=== PATIENT | male | born 1945 | race Caucasian/White ===

== ENCOUNTER 2019-01-18 06:21 | Day surgery (SDC) | payer OTHER, SELFPAY ==
--- NOTE | 2019-01-18 | PATH_ITS ---
[facility] Accession Number: [id number] . 01 Material submitted: . PART A: CECAL POLYP PART B: POLYP AT 40CM PART C: POLYP AT 20CM . 02 Diagnosis: A. Cecum, Polyp, Biopsy: Tubular adenoma. . B. Polyp at 40 cm, Biopsy: Tubular adenoma. . C. Polyp at 20 cm, Biopsy: Tubular adenoma. MRV/01/21/2019 . 02 Electronically signed: . Lorraine Valencia MD, Pathologist NPI- [id number] . 01 Gross description: . Received three formalin-filled containers, both labeled with the patient's name: . A. In a container labeled cecal polyp, are multiple 0.1-0.3 cm portions of tissue, entirely submitted in cassette A. B. In a container labeled polyp at 40 cm, are two 0.2-0.4 cm portions of tissue, entirely submitted in cassette B. C. In a container labeled polyp at 20 cm, are two less than 0.1 cm to 0.5 cm portions of tissue, entirely submitted in cassette C. ([id number]) /FRR . 02 Pathologist provided ICD-10: D12.0, D12.6 . 02 CPT . 406453, 121420, 846081 Performed at: 01 [facility] [address] [place] [address], [place], [place] [id number] MD Herber Ordonez MD Phone: [phone] Performed at: 02 [facility] [address] [place], [place] [id number] MD Lorraine Valencia MD Phone: [phone]
[2019-01-18 07:04] VITALS: BMI 27.4
[2019-01-18 07:09] VITALS: BP 157/89; PULSE 85; RESP 15; TEMP 36.7; O2SAT 94
[2019-01-18] MEDS: SODIUM CHLORIDE 0.9% 1,000 ML 200 ML IV (07:45)
--- NOTE | 2019-01-18 08:05 | PM.HP.1 ---
History of Present Illness Chief complaint: colonoscopy [id number] Narrative: Patient is here for a colonoscopy. He has heme-positive stool. This is his 1st colonoscopy Patient History Medical History Incarcerated umbilical hernia (Chronic) Surgical History History of tonsillectomy History of vasectomy Status post appendectomy Family History Mother Diabetes mellitus Stroke Social History marital status: unmarried,living together household members: spouse occupational status: previously employed Family & Social History Family History Mother Diabetes mellitus Stroke Social History: household members spouse Meds Home Medications Medication Instructions Recorded Confirmed Type aspirin 81 mg PO QDAY #0 11/07/16 01/18/19 History pneumococcal 23-alex ps vaccine 0.5 ml IM X1 #1 dose 11/07/16 Rx [Pneumovax 23] polyethylene glycol 3350 17 g PO DAILY #0 11/07/16 01/18/19 History simvastatin 20 mg PO HS #180 tab 11/07/16 01/18/19 Rx coenzyme Q10 75 mg capsule 300 mg PO DAILY cap 10/30/18 01/18/19 History omega-3 fatty acids 1,000 mg 1,000 mg PO DAILY 10/30/18 01/18/19 History capsule Lactobacillus acidophilus 1 tab PO DAILY 01/18/19 01/18/19 History cholecalciferol (vitamin D3) 2,000 unit PO DAILY 01/18/19 01/18/19 History [Vitamin D3] Allergies Allergy/AdvReac Type Severity Reaction Status Date / Time No Known Drug Allergies Allergy Verified 01/18/19 06:58 Review of Systems Review of Systems Patient has no cardiopulmonary GI symptoms at this time. He has never seen blood. Exam Vital Signs (past 8 hours): - 01/18/19 07:09 Temperature 98.0 F Pulse Rate 85 Respiratory Rate 15 Blood Pressure 157/89 H Pulse Oximetry 94 Oxygen Delivery Method Room Air Narrative Exam Narrative: Co Operative gentleman no apparent distress. Overweight. Lungs are clear. Heart regular rate and rhythm without murmur gallop. Abdomen is protuberant soft nontender without mass. Assessment & Plan Assessment & Plan narrative: Patient for a screening colonoscopy this is his 1st colonoscopy discussed procedure. I have discussed the procedure and the rationale with the patient including risks of bleeding, perforation which would necessitate a major operation, failure to find remove all lesions and the potential to tattoo. They appeared to understand and wished to proceed.
--- NOTE | 2019-01-18 08:09 | PM.PREOP ---
Pre-operative Note Interval Note History & Physical reviewed/Exam performed by Physician: Yes Changes to H&P: No ASA Class (for procedural sedation): II
[2019-01-18] MEDS: MIDAZOLAM 5 MG/5 ML VIAL IV (08:25)
[2019-01-18] MEDS: fentaNYL 250 MCG/5 ML INJ IV (08:26)
--- NOTE | 2019-01-18 08:47 | PM.OP.ENDO ---
Operative Date/Time/Diagnoses Date of procedure: 01/18/19 Time of procedure: 08:47 Pre-op diagnosis: Screening examination. This is his 1st colonoscopy. He does have heme-positive stool. Post-op diagnosis: other (Extensive sigmoid diverticulosis. Three polyps removed. Internal hemorrhoids. Enlarged prostate.) Procedure & Clinicians Study performed: Colonoscopy with cold biopsy and hot snare polypectomy Same procedure as scheduled: Yes Indications: Screening/heme-positive stool Surgeon: Tony Last Procedure Notes SCOAP/Timeout: Performed Procedure in detail: The patient was placed in the left lateral decubitus position and underwent IV sedation directed by the surgeon consisting of fentanyl and Versed. Digital exam was remarkable for a firm mildly enlarged prostate. The scope was inserted and advanced through the rectum into the sigmoid, descending, transverse, and ascending colon. The patient was noted to have extensive sigmoid diverticulosis. There was no stricture however. Nor was the colon through this region tortuous.. The cecum was reached identified by the ileocecal valve and the appendiceal opening. There was a polyp in the cecum which was biopsied and appeared to be completely removed. The scope was gradually brought out. Polyps were found at 40 cm from the anal verge in 20 cm from the anal verge. The 1st of these was small and removed with cold biopsy forceps. The 2nd was a little larger and appeared hypervascular. This was snared and removed.. The scope ultimately was retroflexed in the rectum. The appearance was remarkable for some internal hemorrhoids right near the anal verge. There was no ulceration and they were small. These were not seen in the retroflexed view but only as I slowly came through the anal canal. The scope was removed and the patient tolerated the procedure well Scope withdrawal time: Almost 12 min Sedation minutes: 30 Findings: diverticulosis (Sigmoid. Rather extensive.), internal hemorrhoids (Small, near anal verge) and polyp (Three polyps removed) Specimen(s): other (Polyps) Complications: none Recommendations: Colonscopy in 5 years Follow up: as needed Disposition: PACU
[2019-01-18 08:48] VITALS: BP 152/89; PULSE 82; RESP 19; TEMP 36.3; O2SAT 95
[2019-01-18 09:04] VITALS: BP 142/79; PULSE 78; RESP 17; TEMP 36.7; O2SAT 93
== END 2019-01-18 09:22 | disposition home or self-care (01) ==
PROVIDERS: PCP Internal Medicine; Visit Provider Specialist
PROC: 0DJD8ZZ Inspection of Lower Intestinal Tract, Via Natural or Artificial Opening Endoscopic (ICD-10-PCS; CPT 45378; principal; 2019-01-18 07:45)
DX: K92.1 Melena (principal); K57.30 Diverticulosis of large intestine without perforation or abscess without bleeding; K64.8 Other hemorrhoids; N40.0 Benign prostatic hyperplasia without lower urinary tract symptoms; D12.0 Benign neoplasm of cecum; D12.6 Benign neoplasm of colon, unspecified
CPT/HCPCS: 45385; 45380; 99152; 99153; J2250; J3010

== ENCOUNTER 2019-01-31 06:51 | Day surgery (SDC) | payer OTHER, SELFPAY ==
[2019-01-29 14:41] VITALS: BMI 29.0
[2019-01-31 07:05] VITALS: BMI 27.9
[2019-01-31 07:21] VITALS: BP 156/81; PULSE 79; RESP 20; TEMP 36.9; O2SAT 94
[2019-01-31] MEDS: LACTATED RINGERS 1,000 ML 42 ML IV (07:27)
--- NOTE | 2019-01-31 07:46 | PM.HP.1 ---
History of Present Illness Date Patient Seen: 01/31/19 Time Patient Seen: 07:44 Chief complaint: hernia repair mesh 49524 Narrative: Patient is a gentleman here for repair of an umbilical hernia. Patient History Medical History Chronic low back pain (Acute) Hyperlipidemia (Acute) Incarcerated umbilical hernia (Chronic) Surgical History History of tonsillectomy History of vasectomy Status post appendectomy Family History Mother Diabetes mellitus Stroke Social History marital status: unmarried,living together household members: spouse occupational status: previously employed Smoking Status: Former smoker alcohol intake: current Family & Social History Family History Mother Diabetes mellitus Stroke Social History: household members spouse Tobacco & Substance use: Smoking Status Former smoker alcohol intake current Meds Home Medications Medication Instructions Recorded Confirmed Type aspirin 81 mg PO QDAY #0 11/07/16 01/31/19 History pneumococcal 23-alex ps vaccine 0.5 ml IM X1 #1 dose 11/07/16 Rx [Pneumovax 23] polyethylene glycol 3350 17 g PO DAILY #0 11/07/16 01/31/19 History simvastatin 20 mg PO HS #180 tab 11/07/16 01/31/19 Rx coenzyme Q10 75 mg capsule 300 mg PO DAILY cap 10/30/18 01/31/19 History omega-3 fatty acids 1,000 mg 1,000 mg PO DAILY 10/30/18 01/31/19 History capsule Lactobacillus acidophilus 1 tab PO DAILY 01/18/19 01/31/19 History cholecalciferol (vitamin D3) 2,000 unit PO DAILY 01/18/19 01/31/19 History [Vitamin D3] Allergies Allergy/AdvReac Type Severity Reaction Status Date / Time No Known Drug Allergies Allergy Verified 01/31/19 07:03 Review of Systems Review of Systems No present cardiopulmonary GI or symptoms. Had a recent colonoscopy. Exam Vital Signs (past 8 hours): - 01/31/19 07:21 Temperature 98.5 F Pulse Rate 79 Respiratory Rate 20 Blood Pressure 156/81 H Pulse Oximetry 94 Oxygen Delivery Method Room Air Narrative Exam Narrative: Operative no apparent distress. Lungs are clear. Heart regular rate and rhythm without murmur gallop. Abdomen is soft nontender without mass patient has an umbilical hernia. Alert and oriented x3. Assessment & Plan Assessment & Plan narrative: Umbilical hernia. Plan to repair with possible use of mesh. I have discussed this with him including risks of bleeding infection recurrence. He appears to understand wishes to proceed.
--- NOTE | 2019-01-31 07:48 | PM.PREOP ---
Pre-operative Note Interval Note History & Physical reviewed/Exam performed by Physician: Yes Changes to H&P: No
--- NOTE | 2019-01-31 08:18 | SUR.OPER ---
Supine on padded OR bed, head on pillow, arms secured on padded arm boards at <90 degrees abduction, legs uncrossed, safety belt at thigh, tape over blanket over lower legs.
[2019-01-31] MEDS: CEFAZOLIN 2 GM/100 ML FROZ.PIGGY IV (08:28)
[2019-01-31] MEDS: BUPIVACAINE 0.5% (PF) VIAL 15 ML INJ (08:30)
[2019-01-31 08:45] VITALS: BP 149/82; PULSE 92; RESP 13; TEMP 37.1; O2SAT 96
[2019-01-31 08:50] VITALS: BP 159/82; PULSE 74; RESP 17; TEMP 37; O2SAT 95
[2019-01-31 08:55] VITALS: BP 155/74; PULSE 88; RESP 16; TEMP 36.6; O2SAT 94
[2019-01-31 09:00] VITALS: BP 162/91; PULSE 75; RESP 12; TEMP 37; O2SAT 93
--- NOTE | 2019-01-31 09:05 | PM.OP.1 ---
Operative Date/Time/Diagnoses Date of procedure: 01/31/19 Time of procedure: 08:45 Pre-op diagnosis: Incarcerated umbilical hernia Post-op diagnosis: same Procedure & Clinicians Procedure: Repair of umbilical hernia with underlay of mesh Same procedure as scheduled: Yes Indications: Symptomatic incarcerated hernia Surgeon: Tony Last Click Yes if Unassisted: Yes Anesthesia Type: General Operative Notes Findings: Hernia containing preperitoneal fat Closure Type: primary Specimen(s): none sent Prosthetic devices, grafts, tissues, transplants, or devices: 1.7 in diameter circular mesh Estimated Blood Loss (mL): 3 Blood products transfused: none Procedure in detail: The patient is placed supine on the operating room table and underwent general endotracheal anesthesia. He was prepped and draped in the usual fashion. Curvilinear incision was made in the infraumbilical fold and carried down under direct vision to the level of the fascia. The hernia sac was dissected from under the umbilicus and the contents which appeared to be preperitoneal fat were reduced. The fascial edge was cleared. The underside of the abdominal wall was cleared back far enough to allow a piece of mesh to lie flat under it. A 1.7 in diameter circular mesh was placed under the fascia and the tags were incorporated into the closure of the fascia. This was accomplished with 0 Tycron [id number] sutures. The umbilicus was tacked down to the fascia with interrupted 3 0 Vicryl. The subcu was closed with interrupted 3 0 Vicryl. The skin was closed a running 4 0 Vicryl subcuticular stitch and Steri-Strips. Dressing was applied the patient was awakened extubated and taken to the recovery area in good condition. Local anesthetic was infiltrated at the end of the procedure when the skin incision had been closed. Complications: none Condition: stable Disposition: PACU Plan for aftercare: Patient has follow-up appointment
[2019-01-31 09:20] VITALS: BP 150/90; PULSE 75; RESP 14; TEMP 37; O2SAT 94
== END 2019-01-31 09:20 | disposition home or self-care (01) ==
PROVIDERS: PCP Internal Medicine; Visit Provider Specialist
PROC: (CPT 49585; principal; 2019-01-31 07:45)
DX: K42.0 Umbilical hernia with obstruction, without gangrene (principal); G89.29 Other chronic pain; M54.9 Dorsalgia, unspecified; E78.5 Hyperlipidemia, unspecified; G47.33 Obstructive sleep apnea (adult) (pediatric)
CPT/HCPCS: 49585; C1781; J0690; J1100; J2704; J3010